=== PATIENT | female | born 1980 | race Caucasian/White ===

== ENCOUNTER 2017-01-06 09:44 | Emergency (ER) | payer OTHER, SELFPAY ==
[2017-01-06] MEDS ORDERED: Iopamidol 370 76% 100 ML VIAL ONE (09:47)
[2017-01-06 10:11] LABS: Bilirubin Negative (Negative); Blood, Urine Negative (Negative); Clarity Clear (Clear); Glucose, Urine (Dipstick) Negative (Negative); Leukocyte Negative (Negative); Nitrite Negative (Negative); Protein, Urine (Dipstick) Trace mg/dL (Neg-Trace); Urobilinogen 0.2 mg/dL (0.2-1.0); pH, Urine 5.5 (5.0-9.0)
[2017-01-06 10:12] LABS: Pregnancy Test - Urine (BHCG) Negative (Negative); Pregu Control Background? CLEAR/WHITE (CLR/WHITE); Pregu Control Bar Appear? YES (CONTROL BAR); Specific Gravity 1.023 (1.002-1.036); Specific Gravity, Urine 1.023 (1.002-1.036)
[2017-01-06] MEDS ORDERED: Ondansetron ODT 4 MG TAB ONE (10:39)
[2017-01-06 12:42] LABS: Hemoglobin 12.6 g/dL (12.0-16.0); MDiff Complete? YES; Manual Diff?? YES; Mean Corpuscular HGB CONC 32.9 g/dL (32.0-36.0); Mean Corpuscular Hemoglobin 28.1 pg (27.0-31.0); Mean Corpuscular Volume 85.3 fL (81.0-99.0); Mean Platelet Volume 7.6 fL (7.4-10.4); Platelet Count 379 thou/uL (130-400); RBC Distribution Width 12.7 % (11.5-14.5); Red Blood Cell (RBC) Count 4.49 mill/uL (4.20-5.40); White Blood Cell (WBC) Count 6.7 thou/uL (4.8-10.8)
[2017-01-06 12:47] LABS: Neutrophil 56 % (42-75)
[2017-01-06 12:48] LABS: Eosinophils 4 % (0-10); Lymphocytes 35 % (21-51); Monocytes 5 % (0-10); PLT Morphology Comment Appears Adequate
[2017-01-06 12:56] LABS: Anion Gap 14 mmol/L (10-20); BUN (Urea Nitrogen) 12 mg/dL (7.0-18.7); Calc. Creatinine Clearance 0 mL/min (70-130); Carbon Dioxide 26 mmol/L (22-29); Chloride 102 mmol/L (98-107); Estimated GFR-MDRD Greater than 90; Glucose 104 mg/dL (70-105); Potassium 3.9 mmol/L (3.5-5.1); Sodium 138 mmol/L (136-145)
[2017-01-06 12:57] LABS: Calcium 9.6 mg/dL (7.8-10.44)
--- NOTE | 2017-01-06 13:37 | CT ---
CT ABDOMEN AND PELVIS WITH IV AND ORAL CONTRAST: HISTORY: Left abdominal pain. FINDINGS: The lung bases are clear. A LAP band is in place. The liver, spleen, kidneys, adrenal glands, and p ancreas are within normal limits. Circumaortic left renal vein is noted. Urinary bladder is unremar kable. Follicles arise from the ovaries. The colon is not inflamed. Hyperdense material is noted centrally within the gallbladder lumen and may represent biliary sludge. IMPRESSION: Postoperative changes. No acute abnormalities are demonstrated to explain left abdominal pain. POS: KENH
== END 2017-01-06 14:00 | disposition home or self-care (01) ==
LOC: MADERS 09:44
DX: R10.84 Generalized abdominal pain (principal); G43.909 Migraine, unspecified, not intractable, without status migrainosus; E11.9 Type 2 diabetes mellitus without complications; I10 Essential (primary) hypertension; F32.9 Major depressive disorder, single episode, unspecified; F41.9 Anxiety disorder, unspecified; Z79.84 Long term (current) use of oral hypoglycemic drugs
CPT/HCPCS: 74177; 80048; 81003; 81025; 85025; Q0162